=== PATIENT | male | born 1970 | race Caucasian/White ===

== ENCOUNTER 2019-05-04 15:46 | Emergency (ER) | payer OTHER ==
[~2019-05-04] VITALS: Ht 162.6 cm; Wt 86.7 kg
[2019-05-04 15:53] VITALS: Ht 162.6 cm; Wt 86.7 kg
--- NOTE | 2019-05-04 17:11 | ERD ---
ER Documentation Chief Complaint Chief Complaint AP W/DIARRHEA [id number], [id number] HPI The patient is a 48-year-old male, presenting to the ER because of intermittent abdominal pain and diarrhea for the last 3 weeks, denies hematemesis/maryann tochezia, denies fever, chills, neck pain, chest pain, dyspnea, vomiting, dysuria. He does not smoke nor drink Past medical history: Diabetes mellitus, hypertension, dyslipidemia, chronic right plantar foot ulcer Surgical history: None ROS All systems reviewed and are negative except as per history of present illness. Medications Home Meds Active Scripts Loperamide Hcl* (Imodium*) 2 Mg Capsule, 2 MG PO .AFTER EA LOOSE BM PRN for DIARRHEA, #10 TAB Prov:DANIELLE HAMMER MD 05/04/19 Reported Medications Lisinopril* (Lisinopril*) 10 Mg Tablet, 10 MG PO DAILY, #30 TAB 05/04/19 Simvastatin* (Zocor*) 20 Mg Tablet, 20 MG PO QHS, #30 TAB 05/04/19 Aspirin* (Aspirin* EC) 81 Mg Tablet.dr, 81 MG PO DAILY, TAB 05/04/19 Insulin Aspart (Novolog Mix (70/30)) 100 Units/Ml Soln, 30 UNIT SC WITH DINNER, EA 05/04/19 Allergies Allergies: Coded Allergies: No Known Allergy (Unverified , 05/04/19) Physical Exam Vitals Vital Signs Date Temp Pulse Resp B/P (MAP) Pulse Ox O2 O2 Flow FiO2 Time Delivery Rate 05/04/19 98.5 82 16 128/69 99 Room Air 22:17 (88) 05/04/19 83 16 134/78 98 Room Air 20:38 (96) 05/04/19 98.9 85 16 134/77 98 Room Air 18:39 (96) 05/04/19 86 15 147/79 100 Room Air 17:45 (101) 05/04/19 98.2 99 18 147/68 96 15:53 (94) Physical Exam Const: No acute distress. Head: Atraumatic. Eyes: Normal Conjunctiva. ENT: Normal External Ears, Nose and Mouth. Neck: Full range of motion. No meningismus. Resp: Clear to auscultation bilaterally. Cardio: Regular rate and rhythm. Abd: Soft, non distended, normal bowel sounds, non tender. Skin: No petechiae or rashes. Back: No midline or flank tenderness. Ext: No cyanosis, or edema. Small, dry, chronic diabetic ulcer right plantar foot with no discharge, no calf tenderness Neur: Awake and alert. No focal deficit Psych: Normal Mood and Affect. Result Diagram: 05/04/19 1723 05/04/19 1723 Results 24 hrs Laboratory Tests Test 05/04/19 15:52 05/04/19 17:23 05/04/19 21:45 Bedside Glucose 116 mg/dL White Blood Count 14.1 10^3/ul Red Blood Count 4.98 10^6/ul Hemoglobin 14.5 g/dl Hematocrit 42.1 % Mean Corpuscular Volume 84.5 fl Mean Corpuscular Hemoglobin 29.1 pg Mean Corpuscular Hemoglobin Concent 34.4 g/dl Red Cell Distribution Width 12.9 % Platelet Count 237 10^3/UL Mean Platelet Volume 9.6 fl Immature Granulocytes % 0.400 % Neutrophils % 79.5 % Lymphocytes % 10.5 % Monocytes % 9.1 % Eosinophils % 0.2 % Basophils % 0.3 % Nucleated Red Blood Cells % 0.0 /100WBC Immature Granulocytes # 0.050 10^3/ul Neutrophils # 11.2 10^3/ul Lymphocytes # 1.5 10^3/ul Monocytes # 1.3 10^3/ul Eosinophils # 0.0 10^3/ul Basophils # 0.0 10^3/ul Nucleated Red Blood Cells # 0.0 10^3/ul Sodium Level 136 mmol/L Potassium Level 4.3 mmol/L Chloride Level 106 mmol/L Carbon Dioxide Level 23 mmol/L Anion Gap 7 Blood Urea Nitrogen 19 mg/dl Creatinine 1.22 mg/dl Est Glomerular Filtrat Rate mL/min > 60 mL/min Glucose Level 138 mg/dl Calcium Level 9.0 mg/dl Total Bilirubin 0.9 mg/dl Direct Bilirubin 0.00 mg/dl Indirect Bilirubin 0.9 mg/dl Aspartate Amino Transf (AST/SGOT) 19 IU/L Alanine Aminotransferase (ALT/SGPT) 26 IU/L Alkaline Phosphatase 67 IU/L Total Protein 6.6 g/dl Albumin 3.7 g/dl Globulin 2.90 g/dl Albumin/Globulin Ratio 1.27 Lipase 27 U/L Bedside Urine pH (LAB) 5.0 Bedside Urine Protein (LAB) 3+ Bedside Urine Glucose (UA) Negative Bedside Urine Ketones (LAB) 1+ Bedside Urine Blood 2+ Bedside Urine Nitrite (LAB) Negative Bedside Urine Leukocyte Esterase (L Negative Current Medications Medications Dose Sig/Son Start Time Status Last (Trade) Ordered Route PRN Stop Time Admin Dose Reason Admin Ondansetron 4 mg ONCE STAT 05/04/19 DC 05/04/19 HCl (Zofran ODT 17:16 05/04/19 17:25 Odt) 17:17 Loperamide 4 mg ONCE ONCE 05/04/19 DC 05/04/19 HCl PO 17:30 05/04/19 17:25 (Imodium Cap) 17:31 Procedures/MDM MEDICAL MAKING DECISION: The patient is a 48-year-old male, presenting with acute diarrhea with vague discomfort of unclear etiology, chronic right plantar foot ulceration. He was treated with Zofran ODT and Imodium for nausea and diarrhea with good response. He is able to tolerate meals well with any difficulty and wanted to go home The differential diagnoses considered include but are not limited to cholelithiasis, cholecystitis, choledocholithiasis, cholangitis, pancreatitis, hepatitis, gastritis, peptic ulcer disease, gastric ulcer, appendicitis, cystitis, diverticulitis, partial small bowel obstruction. Departure Diagnosis: Primary Impression: Diarrhea Additional Impression: Diabetic ulcer of foot associated with type 2 diabetes mellitus, limited to breakdown of skin Condition: Good Comments He was discharge with Imodium and advised to return in 8-hour for evaluation because of a slightly high leukocytosis He was referred to [facility] Dr Acevedo for diabetic ulcer I discussed the findings with the patient. I advised the patient to follow-up with the primary physician in about 2-3 days, sooner if needed and return if any concern. Disclaimer: Inadvertent spelling and grammatical errors are likely due to EHR/dictation software use and do not reflect on the overall quality of patient care. Also, please note that the electronic time recorded on this note does not necessarily reflect the actual time of the patient encounter. DANIELLE HAMMER MD May 04, 2019 17:11
[2019-05-04] MEDS ORDERED: ONDANSETRON (ODT) 4 MG TAB ODT STA (17:16)
[2019-05-04] MEDS ORDERED: LOPERAMIDE 2 MG CAP PO ONE (17:30)
[2019-05-04] MEDS ORDERED: NOVMIX SC (18:00)
[2019-05-04] MEDS ORDERED: ASPI-817 PO (18:01)
[2019-05-04] MEDS ORDERED: SIMV20TA PO (18:02)
[2019-05-04] MEDS ORDERED: LISI10TA2 PO (18:02)
[2019-05-04] MEDS ORDERED: LOPE2CAP PO (22:05)
[2019-05-04 22:17] VITALS: BP 128/69; PULSE 82; RESP 16
== END 2019-05-04 22:19 | disposition home or self-care (01) ==
LOC: E/R 15:46
DX: R19.7 Diarrhea, unspecified (principal); I10 Essential (primary) hypertension; E11.621 Type 2 diabetes mellitus with foot ulcer; L97.511 Non-pressure chronic ulcer of other part of right foot limited to breakdown of skin; Z79.4 Long term (current) use of insulin; Z79.82 Long term (current) use of aspirin
CPT/HCPCS: 36415; 80053; 81003; 82962; 83690; 85025; Z7502; Z7610; 99283